=== PATIENT | male | born 1985 | race Caucasian/White ===

== ENCOUNTER 2017-05-30 23:20 | Emergency (ER) | payer SELFPAY ==
[~2017-05-30 23:20] MED LIST: ALBE200T PO; ALBU17I INH; MOME17I
[2017-05-30 23:23] VITALS: BP 134/80; PULSE 96; RESP 16; TEMP 98.1; O2SAT 98
[2017-05-31] MEDS ORDERED: LIDOCAINE VISCOUS 2% SOLN 15 ML UDC ONE (02:15)
--- NOTE | 2017-05-31 05:19 | PD ---
HPI Chief Complaint: Anxiety Time Seen by Provider: 05:10 Travel History International Travel<30 days: No Contact w/Intl Traveler<30days: No Traveled to known affect area: No History of Present Illness HPI PATIENT STATES H/O ANXIETY, ASTHMA AND GERD....PT CAME IN C/O FEELING NERVOUS ( NO SI OR HI) AND NOW THAT'S MAKING HIS GERD WORSE. STATES THAT HE IS UNDER A LOT STRESS AT HOME. PFSH Past Medical History Asthma: Yes Diminished Hearing: No Past Surgical History Other Surgery: Yes (NASAL SURGERY) Social History Alcohol Use: No Tobacco Use: No Substance Use: No (DENIES) Allergies-Medications (Allergen,Severity, Reaction): Coded Allergies: No Known Allergies (Verified , 02/11/12) Reported Meds & Prescriptions Reported Meds & Active Scripts Active Albenza (Albendazole) 200 Mg Tab 400 Mg PO DAILY 3 Days Reported Proventil Mdi (Albuterol Sulfate) 17 Gm [place] 2 Puff INH DIRECTED Nasonex (Mometasone Furoate) 17 Gm [place] 1 Spr NA DAILY Review of Systems Gastrointestinal: Positive: Nausea Psychiatric: Positive: Anxiety Physical Exam Narrative GENERAL: SKIN: Warm and dry. HEAD: Atraumatic. Normocephalic. EYES: Pupils equal and round. No scleral icterus. No injection or drainage. ENT: No nasal bleeding or discharge. Mucous membranes pink and moist. NECK: Trachea midline. No JVD. CARDIOVASCULAR: Regular rate and rhythm. RESPIRATORY: No accessory muscle use. Clear to auscultation. Breath sounds equal bilaterally. GASTROINTESTINAL: Abdomen soft, non-tender, nondistended. Hepatic and splenic margins not palpable. MUSCULOSKELETAL: Extremities without clubbing, cyanosis, or edema. No obvious deformities. NEUROLOGICAL: Awake and alert. No obvious cranial nerve deficits. Motor grossly within normal limits. Five out of 5 muscle strength in the arms and legs. Normal speech. PSYCHIATRIC: Appropriate mood and affect; insight and judgment normal THOUGH A BIT ANXIOUS Data Data Last Documented VS Vital Signs Date Time Temp Pulse Resp B/P Pulse Ox O2 Delivery O2 Flow Rate FiO2 05/30/17 23:23 98.1 96 16 134/80 98 Room Air Orders Lidocaine 2% Viscous (Xylocaine 2% Visco (05/31/17 02:15) Electrocardiogram (05/31/17 01:21) MDM Medical Decision Making Medical Screen Exam Complete: Yes Emergency Medical Condition: Yes Medical Record Reviewed: Yes Differential Diagnosis HYPOGLYCEMIA V DEHYDRATION V STRESS REACTION Narrative Course NEG E/O HYPOGLYCEMIA/DEHYDRATION AT THIS POINT. GI COCKTAIL HELPED RESOLVED PATIENT'S NAUSEA COMPLAINT Diagnosis Primary Impression: STRESS REACTION Additional Impression: DYSPEPSIA Disposition: 01 DISCHARGE HOME Condition: Stable Miguel Bui MD May 31, 2017 05:19
--- NOTE | 2017-05-31 13:36 | EKG ---
Date Performed: 05/31/2017 Time Performed: 01:21:31 PTAGE: 31 years EKG: Sinus rhythm WITH SINUS ARRHYTHMIA BORDERLINE RIGHT AXIS DEVIATION BORDERLINE ECG NO PREVIOUS TRACING DOCTOR: Wojciech Funes Interpretating Date/Time 05/31/2017 13:34:01
== END 2017-05-31 13:05 | disposition home or self-care (01) ==
LOC: NEPC 23:20
DX: F43.9 Reaction to severe stress, unspecified (principal); R10.13 Epigastric pain; J45.909 Unspecified asthma, uncomplicated; K21.9 Gastro-esophageal reflux disease without esophagitis
CPT/HCPCS: 93005; 99281

== ENCOUNTER 2017-06-13 19:25 | Inpatient (IN) | payer SELFPAY ==
[2017-06-13 19:30] VITALS: BP 137/68; PULSE 105; RESP 16; TEMP 98; O2SAT 100
[2017-06-13 20:51] VITALS: BP 135/74; PULSE 106; RESP 16; O2SAT 100
[2017-06-13] MEDS ORDERED: RANI150C PO (20:58)
[2017-06-13] MEDS ORDERED: VENTAER INH (20:58)
[2017-06-13] MEDS ORDERED: HYDR50TA94 PO (20:58)
[2017-06-13] MEDS ORDERED: SODIUM CHLORIDE 0.9% FLUSH 10 ML FLUSH IVF PRN (21:00)
--- NOTE | 2017-06-13 21:14 | PD ---
HPI Chief Complaint: Anxiety Time Seen by Provider: 21:09 Travel History International Travel<30 days: No Contact w/Intl Traveler<30days: No Traveled to known affect area: No History of Present Illness HPI Patient's mother complaining of anxiety, shortness of breath, chest pain, and excessive belching has been ongoing for several hours. Patient states he was seen here approximately 2 weeks ago for similar states that this feels somewhat different. Patient took his Vistaril and Ventolin with no relief of his symptoms. Patient denies anything making it worse. Patient has a history of panic and anxiety attacks as well as asthma. Patient denies any family history heart attack or sudden before age 40. Patient's pain is radiating into the right side of his neck. PFSH Past Medical History Asthma: Yes Anxiety: Yes Diminished Hearing: No Immunizations Current: Yes Past Surgical History Other Surgery: Yes (NASAL SURGERY) Social History Alcohol Use: Yes Tobacco Use: No Substance Use: No (DENIES) Allergies-Medications (Allergen,Severity, Reaction): Coded Allergies: No Known Allergies (Verified , 06/13/17) Reported Meds & Prescriptions Reported Meds & Active Scripts Active Albenza (Albendazole) 200 Mg Tab 400 Mg PO DAILY 3 Days Reported Ventolin Hfa 18 GM Inh (Albuterol Sulfate) 90 Mcg/Act Aer 2 Puff INH Q4-6H PRN Hydroxyzine HCl 50 Mg Tab 50 Mg PO BID PRN Ranitidine (Ranitidine HCl) 150 Mg Cap 150 Mg PO BID Proventil Mdi (Albuterol Sulfate) 17 Gm Aero 2 Puff INH DIRECTED Nasonex (Mometasone Furoate) 17 Gm [place] 1 Spr NA DAILY Review of Systems Except as stated in HPI: all other systems reviewed are Neg Physical Exam Narrative GENERAL: Well-developed, well nourished, in no acute distress, and non-ill appearing. SKIN: Focused skin assessment warm and dry. HEAD: Atraumatic. Normocephalic. EYES: Pupils equal and round. EOMI. No scleral icterus. No injection or drainage. ENT: No nasal bleeding or discharge. Mucous membranes pink and moist. NECK: Trachea midline. Supple. No nuclear rigidity. CARDIOVASCULAR: Regular rate and rhythm. No murmur appreciated. RESPIRATORY: No accessory muscle use. No respiratory distress. Clear to auscultation. Breath sounds equal bilaterally. GASTROINTESTINAL: Abdomen soft, non-tender, nondistended, and no guarding. Hepatic and splenic margins not palpable. No pulsatile mass. MUSCULOSKELETAL: No obvious deformities. No clubbing. No cyanosis. No edema. Full range of motion. NEUROLOGICAL: Awake and alert. No obvious cranial nerve deficits. Motor grossly within normal limits. Normal speech. PSYCHIATRIC: Appropriate mood and affect; insight and judgment normal. Data Data Last Documented VS Vital Signs Date Time Temp Pulse Resp B/P Pulse Ox O2 Delivery O2 Flow Rate FiO2 06/13/17 22:28 91 18 140/70 99 Room Air 06/13/17 19:30 98.0 Orders Electrocardiogram (06/13/17 20:58) Basic Metabolic Panel (Bmp) (06/13/17 20:58) Ckmb (Isoenzyme) Profile (06/13/17 20:58) Complete Blood Count With Diff (06/13/17 20:58) Magnesium (Mg) (06/13/17 20:58) Prothrombin Time / Inr (Pt) (06/13/17 20:58) Act Partial Throm Time (Ptt) (06/13/17 20:58) Troponin I (06/13/17 20:58) Chest, Single Ap (06/13/17 20:58) Ecg Monitoring (06/13/17 20:58) Bilateral Bp Monitoring (06/13/17 20:58) Iv Access Insert/Monitor (06/13/17 20:58) Oximetry (06/13/17 20:58) Oxygen Administration (06/13/17 20:58) Sodium Chloride 0.9% Flush (Ns Flush) (06/13/17 21:00) Ct Soft Tiss Neck W Iv Cont (06/13/17 ) Ct Thorax/ Chest W Iv Contrast (06/13/17 ) CKMB (06/13/17 21:05) CKMB% (06/13/17 21:05) Lorazepam Inj (Ativan Inj) (06/13/17 23:00) Sodium Chlor 0.9% 1000 Ml Inj (Ns 1000 M (06/13/17 23:00) Iohexol 350 Inj (Omnipaque 350 Inj) (06/13/17 23:16) Admit Order (Ed Use Only) (06/13/17 23:46) Chest, Single Ap (06/14/17 06:00) Place In Observation (06/13/17 ) Vital Signs (Adult) Q4H (06/13/17 23:46) Activity Oob Ad Sonya (06/13/17 23:46) Modular Home Crew Member / Telemetry .CONTINUOUS (06/13/17 23:46) Diet Regular Basic (06/14/17 Breakfast) Sodium Chloride 0.9% Flush (Ns Flush) (06/14/17 00:00) Sodium Chloride 0.9% Flush (Ns Flush) (06/14/17 09:00) Ondansetron Inj (Zofran Inj) (06/14/17 00:00) Comprehensive Metabolic Panel (06/14/17 06:00) Complete Blood Count With Diff (06/14/17 06:00) Troponin I (06/14/17 06:00) Troponin I (06/14/17 12:00) Scd Bilateral/Knee High KAROLINE.BID (06/13/17 23:46) Yung Bilateral/Knee High KAROLINE.QSHIFT (06/13/17 23:46) Acetaminophen (Tylenol) (06/14/17 00:00) Acetamin-Hydrocod 325-5 Mg ([place] 5-325 (06/14/17 00:00) Morphine Inj (Morphine Inj) (06/14/17 00:00) Docusate Sodium-Senna (Madeline-Colace) (06/14/17 09:00) Magnesium Hydroxide Liq (Milk Of Magnesi (06/14/17 00:00) Sennosides (Senokot) (06/14/17 00:00) Bisacodyl Supp (Dulcolax Supp) (06/14/17 00:00) Lactulose Liq (Lactulose Liq) (06/14/17 00:00) Resp Pulse Oximetry (06/13/17 ) Lorazepam Inj (Ativan Inj) (06/14/17 00:00) Labs Laboratory Tests Test 06/13/17 21:05 White Blood Count 15.2 TH/MM3 Red Blood Count 5.34 MIL/MM3 Hemoglobin 15.3 GM/DL Hematocrit 45.7 % Mean Corpuscular Volume 85.5 FL Mean Corpuscular Hemoglobin 28.7 PG Mean Corpuscular Hemoglobin 33.5 % Concent Red Cell Distribution Width 13.9 % Platelet Count 213 TH/MM3 Mean Platelet Volume 8.1 FL Neutrophils (%) (Auto) 84.4 % Lymphocytes (%) (Auto) 10.0 % Monocytes (%) (Auto) 5.2 % Eosinophils (%) (Auto) 0.2 % Basophils (%) (Auto) 0.2 % Neutrophils # (Auto) 12.8 TH/MM3 Lymphocytes # (Auto) 1.5 TH/MM3 Monocytes # (Auto) 0.8 TH/MM3 Eosinophils # (Auto) 0.0 TH/MM3 Basophils # (Auto) 0.0 TH/MM3 CBC Comment DIFF FINAL Differential Comment Prothrombin Time 11.0 SEC Prothromb Time International 1.0 RATIO Ratio Activated Partial 24.9 SEC Thromboplast Time Sodium Level 139 MEQ/L Potassium Level 4.0 MEQ/L Chloride Level 108 MEQ/L Carbon Dioxide Level 20.2 MEQ/L Anion Gap 11 MEQ/L Blood Urea Nitrogen 8 MG/DL Creatinine 1.17 MG/DL Estimat Glomerular Filtration 73 ML/MIN Rate Random Glucose 132 MG/DL Calcium Level 9.7 MG/DL Magnesium Level 1.8 MG/DL Total Creatine Kinase 102 U/L Creatine Kinase MB 0.5 NG/ML Troponin I LESS THAN 0.02 NG/ML MDM Medical Decision Making Medical Screen Exam Complete: Yes Emergency Medical Condition: Yes Interpretation(s) EKG reviewed by Dr. Mcqueen shows sinus rhythm ventricular rate of 90. No STEMI. Chest x-ray read by the radiologist shows: No acute disease. Questionable pneumomediastinum in the neck. CT of the neck and chest reviewed by Dr. Thomas positive for pneumomediastinum. Radiologist to over read. Differential Diagnosis Pneumonia, pneumothorax, electrolyte abnormality, anxiety, acute coronary syndrome, other Narrative Course 2144 after being chest x-ray patient was reevaluated neck exam noted some mild crepitus on right. Patient's exam. Initial laboratory studies were ordered. IV was established. Patient was placed on a quality assurance monitor chassis. Discussed patient with Dr. Mcqueen who saw and evaluated the patient is in agreement with plan of care and disposition. I discussed all findings and plan of care with patient, who was agreeable for admission. All questions were answered. Patient remained stable throughout ED course. Physician Communication Physician Communication [id number] Bentley, who is agreeable to admit the patient. Diagnosis Primary Impression: Pneumomediastinum Admitting Information Admitting Physician Requests: Observation Condition: Stable Lester Luciano Jun 13, 2017 21:14
--- NOTE | 2017-06-13 21:31 | RADRPT ---
EXAM DATE/TIME: 06/13/2017 20:59 [facility] COMPARISON: No previous studies available for comparison. INDICATIONS : Short of breath. MEDICAL HISTORY : Bronchitis and anxiety SURGICAL HISTORY : None. ENCOUNTER: Initial ACUITY: 1 day PAIN SCORE: 4/10 LOCATION: Bilateral chest FINDINGS: A single view of the chest demonstrates the lungs to be symmetrically aerated without evidence of mas s, infiltrate or effusion. The cardiomediastinal contours are unremarkable. Osseous structures are intact. Questionable pneumomediastinum in neck. CONCLUSION: No acute disease. Questionable pneumomediastinum in the neck. Anshul Dimas MD on June 13, 2017 at 21:29 Board Certified Radiologist. This report was verified electronically.
[2017-06-13 21:35] LABS: AUTOMATED NEUTROPHIL # 12.8 TH/MM3 (1.8-7.7); BASOPHIL % 0.2 % (0.0-2.0); EOSINOPHIL % 0.2 % (0.0-4.0); HEMATOCRIT 45.7 % (39.0-51.0); HEMO FLAGS DIFF FINAL; LYMPHOCYTE # 1.5 TH/MM3 (1.0-4.8); MEAN CELL VOLUME 85.5 FL (80.0-100.0); MEAN CORPUSCULAR HEMOGLOBIN 28.7 PG (27.0-34.0); MEAN CORPUSCULAR HGB CONC 33.5 % (32.0-36.0); MONO % 5.2 % (0.0-8.0); NEUT % 84.4 % (16.0-70.0); PLATELET COUNT 213 TH/MM3 (150-450); RED BLOOD COUNT 5.34 MIL/MM3 (4.50-5.90); RED CELL DISTRIBUTION WIDTH 13.9 % (11.6-17.2); WHITE BLOOD COUNT 15.2 TH/MM3 (4.0-11.0)
[2017-06-13 21:44] LABS: APTT (PATIENT) 24.9 SEC (24.3-30.1)
[2017-06-13 22:22] LABS: CREATINE KINASE 102 U/L (39-308)
[2017-06-13 22:23] LABS: ANION GAP 11 MEQ/L (5-15); BICARBONATE 20.2 MEQ/L (21.0-32.0); BLOOD UREA NITROGEN 8 MG/DL (7-18); CHLORIDE 108 MEQ/L (98-107); GLOMERULAR FILTRATION RATE 73 ML/MIN (>89); MAGNESIUM 1.8 MG/DL (1.5-2.5); SODIUM (NA) 139 MEQ/L (136-145)
[2017-06-13 22:28] VITALS: BP 140/70; PULSE 91; RESP 18; O2SAT 99
[2017-06-13 22:34] LABS: CKMB 0.5 NG/ML (0.5-3.6)
[2017-06-13] MEDS ORDERED: SODIUM CHLOR 0.9% 1000 ML INJ 1,000 ML IV ONE (23:00)
[2017-06-13] MEDS ORDERED: LORazepam 2 MG/ML VIAL IV PUSH ONE (23:00)
[2017-06-13] MEDS ORDERED: IOHEXOL 350 MG/ML 10 ML VIAL (for RAD DIAG) IV ONE (23:16)
--- NOTE | 2017-06-13 23:50 | HHI.HP ---
[facility] Primary Care Physician Cory Martin MD Admission Diagnosis spontaneous pneumomediastinum Diagnoses: (1) Pneumomediastinum Diagnosis: Principal (2) Chest pain Diagnosis: Principal (3) Anxiety Diagnosis: Principal (4) Dehydration Diagnosis: Principal (5) Leukocytosis Diagnosis: Principal Travel History International Travel<30 Days: No Contact w/Intl Traveler <30 Da: No Traveled to Known Affected Are: No History of Present Illness This is a 31-year-old male with PMH of Anxiety and Asthma who presented to the ER with complaints of significant chest pain and SOB which she attributes to his anxiety. States symptoms of been ongoing for approximately 2wks. Seen in ER on 05/31/17 for similar complaints and d/c'd home. Returns now w/ recurrent chest pain and feelings of anxiety. Does report significant stress at home. On arrival, BP 137/68, HR 105, O2 sat 100% on RA, Afebrile. WBC 15.2. GFR 73. Troponin negative. INR 1.0. CXR with no acute disease, questionable pneumomediastinum in the neck. S/p CT Chest/Neck w/ extensive pneumomediastinum extending into the neck, no pneumothorax noted. Pt denies recent trauma or injury. Review of Systems Except as stated in HPI: all other systems reviewed are Neg ROS: 14 point review of systems otherwise negative. Past Family Social History Past Medical History PMH: Anxiety and Asthma Past Surgical History PAST SURGICAL HISTORY: Nasal Surgery Allergies: Coded Allergies: No Known Allergies (Verified , 06/13/17) Family History PAST FAMILY HISTORY: Reviewed. No h/o DM or CAD Social History PAST SOCIAL HISTORY: Occasional alcohol. Negative for tobacco or drugs. Physical Exam Vital Signs Vital Signs Date Time Temp Pulse Resp B/P Pulse Ox O2 Delivery O2 Flow Rate FiO2 06/13/17 22:28 91 18 140/70 99 Room Air 06/13/17 20:51 106 16 135/74 100 Room Air 06/13/17 20:49 26 06/13/17 19:30 98.0 105 16 137/68 100 Room Air Physical Exam PE: GENERAL: Young male in no acute distress. HEENT: PERRLA, EOMI. No scleral icterus or conjunctival pallor. No lid lag or facial droop. CARDIOVASCULAR: Regular rate and rhythm. No obvious murmurs to auscultation. No chest tenderness to palpation. +crepitus right chest/neck RESPIRATORY: No obvious rhonchi or wheezing. Clear to auscultation. Breath sounds equal bilaterally. GASTROINTESTINAL: Abdomen soft, non-tender, nondistended. BS normal. MUSCULOSKELETAL: Extremities without clubbing, cyanosis, or edema. No obvious deformities. NEUROLOGICAL: Awake, alert and oriented x4. No focal neurologic deficits. Moving both upper and lower extremities spontaneously. Laboratory Laboratory Tests Test 06/13/17 21:05 White Blood Count 15.2 Red Blood Count 5.34 Hemoglobin 15.3 Hematocrit 45.7 Mean Corpuscular Volume 85.5 Mean Corpuscular Hemoglobin 28.7 Mean Corpuscular Hemoglobin 33.5 Concent Red Cell Distribution Width 13.9 Platelet Count 213 Mean Platelet Volume 8.1 Neutrophils (%) (Auto) 84.4 Lymphocytes (%) (Auto) 10.0 Monocytes (%) (Auto) 5.2 Eosinophils (%) (Auto) 0.2 Basophils (%) (Auto) 0.2 Neutrophils # (Auto) 12.8 Lymphocytes # (Auto) 1.5 Monocytes # (Auto) 0.8 Eosinophils # (Auto) 0.0 Basophils # (Auto) 0.0 CBC Comment DIFF FINAL Differential Comment Prothrombin Time 11.0 Prothromb Time International 1.0 Ratio Activated Partial 24.9 Thromboplast Time Sodium Level 139 Potassium Level 4.0 Chloride Level 108 Carbon Dioxide Level 20.2 Anion Gap 11 Blood Urea Nitrogen 8 Creatinine 1.17 Estimat Glomerular Filtration 73 Rate Random Glucose 132 Calcium Level 9.7 Magnesium Level 1.8 Total Creatine Kinase 102 Creatine Kinase MB 0.5 Troponin I LESS THAN 0.02 Result Diagram: 06/13/17210406/13/172104 Assessment and Plan Problem List: (1) Pneumomediastinum ICD Code: J98.2 Status: Acute (2) Chest pain ICD Code: R07.9 Status: Acute (3) Anxiety ICD Code: F41.9 Status: Acute (4) Dehydration ICD Code: E86.0 Status: Acute (5) Leukocytosis ICD Code: D72.829 Status: Acute Assessment and Plan A/P: 1. Pneumomediastinum: Spontaneous. No h/o injury/trauma. CXR w/ possible pneumomediastinum, CT Neck/Chest w/ extensive pneumomediastinum extending into neck, no pneumothorax noted, images reviewed by me. O2 sat normal, will monitor. Check repeat CXR in am for further eval. Consult Gen Sx as needed. 2. Chest Pain: Likely secondary to above, compounded by significant anxiety. Low risk for CAD. Initial trop negative, check serial cardiac enzymes. Analgesics as needed. 3. Anxiety: Ativan prn. 4. Dehydration: GFR 73, BUN/Creat normal, IVF for hydration, repeat labs in am. 5. Leukocytosis: WBC 15. Afebrile. CXR w/ no infiltrate, images reviewed by me, no obvious infection. Repeat labs in am. 6. DVT Prophylaxis: SCD/Teds. 7. Social work for d/c planning as needed. 8. Case discussed w/ ER physician at length. Melba Bentley MD Jun 13, 2017 23:50
[2017-06-14] VITALS (13 sets, daily range): BP systolic 121–136; BP diastolic 62–77; PULSE 66–101; RESP 16–21; TEMP 96.8–98.8; O2SAT 95–100
[2017-06-14] MEDS ORDERED: LACTULOSE SYRUP 20 GM/30 ML CUP PO PRN
[2017-06-14] MEDS ORDERED: BISACODYL 10 MG SUPP RECTAL PRN
[2017-06-14] MEDS ORDERED: ACETAMINOPHEN 325 MG TAB PO PRN
[2017-06-14] MEDS ORDERED: ACETAMINOPHEN/HYDROcodone 325 MG/5 MG TAB PO PRN
[2017-06-14] MEDS ORDERED: SENNOSIDES 8.6 MG TAB PO PRN
[2017-06-14] MEDS ORDERED: SODIUM CHLORIDE 0.9% FLUSH 10 ML FLUSH IV FLUSH PRN
[2017-06-14] MEDS ORDERED: MORPHINE SULFATE 4 MG/ML INJ IV PRN
[2017-06-14] MEDS ORDERED: ONDANSETRON HCL 4 MG/2 ML VIAL IVP PRN
[2017-06-14] MEDS ORDERED: MAGNESIUM HYDROXIDE SUSP 30 ML CUP PO PRN
--- NOTE | 2017-06-14 00:15 | RADRPT ---
EXAM DATE/TIME: 06/13/2017 23:14 [facility] COMPARISON: CT THORAX W CONTRAST, June 13, 2017, 23:14. INDICATIONS : Dyspnea; possible pneumomediastinum on chest x-ray. IV CONTRAST: 78 cc Omnipaque 350 (iohexol) IV ; Cumulative dose for multiple exams. RADIATION DOSE: 12.69 CTDIvol (mGy) MEDICAL HISTORY : Asthma. SURGICAL HISTORY : None. ENCOUNTER: Initial ACUITY: 1 day PAIN SCALE: 0/10 LOCATION: neck TECHNIQUE: Volumetric scanning of the neck was performed. Using automated exposure control and adjustment of th e mA and/or kV according to patient size, radiation dose was kept as low as reasonably achievable to obtain optimal diagnostic quality images. DICOM format image data is available electronically for r eview and comparison. FINDINGS: There is extensive pneumomediastinum with extension of air into the neck, slightly more so on the rig ht than the left. There is extensive air in the parapharyngeal spaces bilaterally and retropharyngeal space. There appears to been previous sinus surgery and there is mild persistent sinus disease. The visualized brain and orbits are unremarkable. There is no evidence of cervical adenopathy or mass. Thyroid is unremarkable. Upper airway structures are patent and normal in appearance. CONCLUSION: Extensive pneumomediastinum with extension of air into the neck as described. Russell Herrera MD on June 14, 2017 at 0:10 Board Certified Radiologist. This report was verified electronically.
--- NOTE | 2017-06-14 00:17 | RADRPT ---
EXAM DATE/TIME: 06/13/2017 23:14 [facility] COMPARISON: No previous studies available for comparison. INDICATIONS : Short of breath; possible pneumomediastinum on chest x-ray. IV CONTRAST: 78 cc Omnipaque 350 (iohexol) IV ; Cumulative dose for multiple exams. RADIATION DOSE: 4.21 CTDIvol (mGy) MEDICAL HISTORY : Asthma. SURGICAL HISTORY : None. ENCOUNTER: Initial ACUITY: 1 day PAIN SCALE: 0/10 LOCATION: chest TECHNIQUE: Volumetric scanning of the chest was performed. Using automated exposure control and adjustment of t he mA and/or kV according to patient size, radiation dose was kept as low as reasonably achievable to obtain optimal diagnostic quality images. DICOM format image data is available electronically for review and comparison. Follow-up recommendations for incidentally detected pulmonary nodules are based at a minimum on nodul e size and patient risk factors according to Fleischner Society Guidelines. FINDINGS: There is extensive pneumomediastinum, mainly in the upper mediastinum with extension into the neck. T here is no evidence of pneumothorax. The lungs are grossly clear. There is no evidence of mediastinal mass or lymphadenopathy. There is no evidence of axillary adenopathy or chest wall destruction. CONCLUSION: Extensive pneumomediastinum Russell Herrera MD on June 14, 2017 at 0:14 Board Certified Radiologist. This report was verified electronically.
--- NOTE | 2017-06-14 00:49 | PD ---
Data Data Last Documented VS Vital Signs Date Time Temp Pulse Resp B/P Pulse Ox O2 Delivery O2 Flow Rate FiO2 06/13/17 22:28 91 18 140/70 99 Room Air 06/13/17 19:30 98.0 Orders Electrocardiogram (06/13/17 20:58) Basic Metabolic Panel (Bmp) (06/13/17 20:58) Ckmb (Isoenzyme) Profile (06/13/17 20:58) Complete Blood Count With Diff (06/13/17 20:58) Magnesium (Mg) (06/13/17 20:58) Prothrombin Time / Inr (Pt) (06/13/17 20:58) Act Partial Throm Time (Ptt) (06/13/17 20:58) Troponin I (06/13/17 20:58) Chest, Single Ap (06/13/17 20:58) Ecg Monitoring (06/13/17 20:58) Bilateral Bp Monitoring (06/13/17 20:58) Iv Access Insert/Monitor (06/13/17 20:58) Oximetry (06/13/17 20:58) Oxygen Administration (06/13/17 20:58) Sodium Chloride 0.9% Flush (Ns Flush) (06/13/17 21:00) Ct Soft Tiss Neck W Iv Cont (06/13/17 ) Ct Thorax/ Chest W Iv Contrast (06/13/17 ) CKMB (06/13/17 21:05) CKMB% (06/13/17 21:05) Lorazepam Inj (Ativan Inj) (06/13/17 23:00) Sodium Chlor 0.9% 1000 Ml Inj (Ns 1000 M (06/13/17 23:00) Iohexol 350 Inj (Omnipaque 350 Inj) (06/13/17 23:16) Admit Order (Ed Use Only) (06/13/17 23:46) Chest, Single Ap (06/14/17 06:00) Place In Observation (06/13/17 ) Vital Signs (Adult) Q4H (06/13/17 23:46) Activity Oob Ad Sonya (06/13/17 23:46) Ceo And President / Telemetry .CONTINUOUS (06/13/17 23:46) Diet Regular Basic (06/14/17 Breakfast) Sodium Chloride 0.9% Flush (Ns Flush) (06/14/17 00:00) Sodium Chloride 0.9% Flush (Ns Flush) (06/14/17 09:00) Ondansetron Inj (Zofran Inj) (06/14/17 00:00) Comprehensive Metabolic Panel (06/14/17 06:00) Complete Blood Count With Diff (06/14/17 06:00) Troponin I (06/14/17 06:00) Troponin I (06/14/17 12:00) Scd Bilateral/Knee High KAROLINE.BID (06/13/17 23:46) Yung Bilateral/Knee High KAROLINE.QSHIFT (06/13/17 23:46) Acetaminophen (Tylenol) (06/14/17 00:00) Acetamin-Hydrocod 325-5 Mg ([place] 5-325 (06/14/17 00:00) Morphine Inj (Morphine Inj) (06/14/17 00:00) Docusate Sodium-Senna (Madeline-Colace) (06/14/17 09:00) Magnesium Hydroxide Liq (Milk Of Magnesi (06/14/17 00:00) Sennosides (Senokot) (06/14/17 00:00) Bisacodyl Supp (Dulcolax Supp) (06/14/17 00:00) Lactulose Liq (Lactulose Liq) (06/14/17 00:00) Resp Pulse Oximetry (06/13/17 ) Lorazepam Inj (Ativan Inj) (06/14/17 00:00) Labs Laboratory Tests Test 06/13/17 21:05 White Blood Count 15.2 TH/MM3 Red Blood Count 5.34 MIL/MM3 Hemoglobin 15.3 GM/DL Hematocrit 45.7 % Mean Corpuscular Volume 85.5 FL Mean Corpuscular Hemoglobin 28.7 PG Mean Corpuscular Hemoglobin 33.5 % Concent Red Cell Distribution Width 13.9 % Platelet Count 213 TH/MM3 Mean Platelet Volume 8.1 FL Neutrophils (%) (Auto) 84.4 % Lymphocytes (%) (Auto) 10.0 % Monocytes (%) (Auto) 5.2 % Eosinophils (%) (Auto) 0.2 % Basophils (%) (Auto) 0.2 % Neutrophils # (Auto) 12.8 TH/MM3 Lymphocytes # (Auto) 1.5 TH/MM3 Monocytes # (Auto) 0.8 TH/MM3 Eosinophils # (Auto) 0.0 TH/MM3 Basophils # (Auto) 0.0 TH/MM3 CBC Comment DIFF FINAL Differential Comment Prothrombin Time 11.0 SEC Prothromb Time International 1.0 RATIO Ratio Activated Partial 24.9 SEC Thromboplast Time Sodium Level 139 MEQ/L Potassium Level 4.0 MEQ/L Chloride Level 108 MEQ/L Carbon Dioxide Level 20.2 MEQ/L Anion Gap 11 MEQ/L Blood Urea Nitrogen 8 MG/DL Creatinine 1.17 MG/DL Estimat Glomerular Filtration 73 ML/MIN Rate Random Glucose 132 MG/DL Calcium Level 9.7 MG/DL Magnesium Level 1.8 MG/DL Total Creatine Kinase 102 U/L Creatine Kinase MB 0.5 NG/ML Troponin I LESS THAN 0.02 NG/ML MDM Supervised Visit with MUNDO: Yes Narrative Course The history, exam, and medical decision-making in the associated mid-level provider note were completed with my assistance. I reviewed and agree with the findings presented. I attest that I had a [id number] encounter with the patient on the same day, and personally performed and documented my assessment and findings in the medical record. *My assessment and Findings: 31-year-old male presents emergent from with anxiety symptoms and trouble breathing. He was found to have a pneumomediastinum. Unclear etiology. He does have asthma. He's had a little bit a cough but no forceful coughing of forceful vomiting. He looks overall well. We'll plan on admission for observation, she continues to do well and can follow-up as an outpatient. Diagnosis Primary Impression: Pneumomediastinum Condition: Stable Marquez Mcqueen MD Jun 14, 2017 00:49
[2017-06-14 05:23] LABS: AUTOMATED NEUTROPHIL # 7.4 TH/MM3 (1.8-7.7); BASOPHIL % 0.4 % (0.0-2.0); EOSINOPHIL # 0.2 TH/MM3 (0-0.4); EOSINOPHIL % 1.8 % (0.0-4.0); HEMATOCRIT 41.7 % (39.0-51.0); HEMO FLAGS DIFF FINAL; LYMPH % 27.3 % (9.0-44.0); LYMPHOCYTE # 3.3 TH/MM3 (1.0-4.8); MEAN CELL VOLUME 85.5 FL (80.0-100.0); MONO % 9.3 % (0.0-8.0); NEUT % 61.2 % (16.0-70.0); PLATELET COUNT 172 TH/MM3 (150-450); RED BLOOD COUNT 4.88 MIL/MM3 (4.50-5.90); RED CELL DISTRIBUTION WIDTH 13.7 % (11.6-17.2)
[2017-06-14 05:47] LABS: ALKALINE PHOSPHATASE 56 U/L (45-117); ALT (GPT) 16 U/L (12-78); ANION GAP 10 MEQ/L (5-15); AST (GOT) 6 U/L (15-37); BICARBONATE 25.2 MEQ/L (21.0-32.0); BLOOD UREA NITROGEN 7 MG/DL (7-18); CHLORIDE 109 MEQ/L (98-107); GLOMERULAR FILTRATION RATE 87 ML/MIN (>89); POTASSIUM 4.2 MEQ/L (3.5-5.1); SODIUM (NA) 144 MEQ/L (136-145)
--- NOTE | 2017-06-14 06:41 | RADRPT ---
EXAM DATE/TIME: 06/14/2017 06:33 [facility] COMPARISON: CHEST SINGLE AP, June 13, 2017, 20:59. INDICATIONS : Follow up pnuemomediastinum MEDICAL HISTORY : None. SURGICAL HISTORY : None. ENCOUNTER: Subsequent ACUITY: 2 days PAIN SCORE: 8/10 LOCATION: Bilateral chest FINDINGS: Extensive pneumomediastinum is again noted with extension of air into the neck, right worse the left and in the right supraclavicular region and axillary region. Lungs remain grossly clear and no defini te pneumothorax is identified. Heart size pulmonary vascularity are normal. CONCLUSION: Slight interval increase in pneumomediastinum and soft tissue air. Russell Herrera MD on June 14, 2017 at 6:39 Board Certified Radiologist. This report was verified electronically.
[2017-06-14] MEDS: FAMOTIDINE 20 MG TAB PO SCH ×2 (09:22→20:17)
[2017-06-14] MEDS: SODIUM CHLORIDE 0.9% FLUSH 10 ML FLUSH IV FLUSH SCH ×2 (09:22→20:17)
[2017-06-14] MEDS: DOCUSATE SODIUM 50 MG/SENNA 8.6 MG TAB PO SCH ×2 (09:22→20:17)
--- NOTE | 2017-06-14 10:22 | HHI.PR ---
Subjective Remarks Follow up for pneumomediastinum, anxiety, chest pain. The patient reports feeling slightly better today. Denies any chest pain or shortness of breath. He states he feels some discomfort in the lower neck and supraclavicular region. Denies any dysphagia/odynophagia. He states his asthma is fairly well controlled , uses his inhaler 3-4x per week, slightly more frequently this past week which he states is because of anxiety. Denies any prior history of intubations or hospitalizations for asthma. He has no other medical complaints at this time. Objective Vitals Vital Signs Date Time Temp Pulse Resp B/P Pulse Ox O2 Delivery O2 Flow Rate FiO2 06/14/17 08:15 97.9 83 18 129/74 95 06/14/17 05:04 98.1 88 21 124/74 100 06/14/17 03:12 98.8 74 18 133/74 98 06/14/17 02:17 66 06/14/17 00:39 80 16 131/66 99 Room Air 06/14/17 00:16 98 06/13/17 22:28 91 18 140/70 99 Room Air 06/13/17 20:51 106 16 135/74 100 Room Air 06/13/17 20:49 26 06/13/17 19:30 98.0 105 16 137/68 100 Room Air Result Diagram: 06/14/17 0505 06/14/17 0505 Imaging Last Impressions Chest X-Ray 06/14/17 0600 Signed Impressions: Service Date/Time: Wednesday, June 14, 2017 06:33 - CONCLUSION: Slight interval increase in pneumomediastinum and soft tissue air. Russell Herrera MD Neck CT 06/13/17 0000 Signed Impressions: Service Date/Time: Tuesday, June 13, 2017 23:14 - CONCLUSION: Extensive pneumomediastinum with extension of air into the neck as described. Russell Herrera MD Chest CT 06/13/17 0000 Signed Impressions: Service Date/Time: Tuesday, June 13, 2017 23:14 - CONCLUSION: Extensive pneumomediastinum Russell Herrera MD Objective Remarks GENERAL: Well-nourished, well-developed young male patient in [facility]. SKIN: Warm and dry. No rash. HEENT: Normocephalic. Atraumatic. Pupils equal and round. Mucous membranes pink and moist. NECK: Supple. Trachea midline. Palpable crepitus right upper chest/neck. CARDIOVASCULAR: Regular rate and rhythm. S1, S2 noted. No murmur appreciated. RESPIRATORY: No accessory muscle use. Clear to auscultation. Breath sounds equal bilaterally. GASTROINTESTINAL: Abdomen soft, non-tender, nondistended. Normoactive bowel sounds x4. MUSCULOSKELETAL: No obvious deformities. Extremities without clubbing, cyanosis , or edema. NEUROLOGICAL: Awake and alert. No obvious cranial nerve deficits. Motor grossly within normal limits. Normal speech. PSYCHIATRIC: Slightly anxious; insight and judgment normal. Medications and IVs Current Medications Medications (Trade) Dose Ordered Sig/Valentín Route Start Time Stop Time Status Last Admin (NS Flush) 2 ml UNSCH PRN IVF 06/13/17 21:00 (NS Flush) 2 ml UNSCH PRN IV FLUSH 06/14/17 00:00 (NS Flush) 2 ml BID IV FLUSH 06/14/17 09:00 06/14/17 09:22 (Zofran Inj) 4 mg Q6H PRN IVP 06/14/17 00:00 (Tylenol) 650 mg Q6H PRN PO 06/14/17 00:00 (Nash 5-325 Mg) 1 tab Q4H PRN PO 06/14/17 00:00 (Morphine Inj) 2 mg Q3H PRN IV 06/14/17 00:00 (Madeline-Colace) 1 tab BID PO 06/14/17 09:00 06/14/17 09:22 (Milk Of Magnesia Liq) 30 ml Q12H PRN PO 06/14/17 00:00 (Senokot) 17.2 mg Q12H PRN PO 06/14/17 00:00 (Dulcolax Supp) 10 mg DAILY PRN RECTAL 06/14/17 00:00 (Lactulose Liq) 30 ml DAILY PRN PO 06/14/17 00:00 (Ativan Inj) 1 mg Q4H PRN IV PUSH 06/14/17 00:00 (Atarax) 50 mg BID PRN PO 06/14/17 09:00 (Pepcid) 20 mg BID PO 06/14/17 10:00 06/14/17 09:22 A/P Problem List: (1) Pneumomediastinum ICD Code: J98.2 Status: Acute (2) Chest pain ICD Code: R07.9 Status: Acute (3) Anxiety ICD Code: F41.9 Status: Acute (4) Dehydration ICD Code: E86.0 Status: Acute (5) Leukocytosis ICD Code: D72.829 Status: Acute Assessment and Plan 31-year-old male with PMH of Anxiety and Asthma who presented to the ER with complaints of significant chest pain and SOB which he attributes to his anxiety. Extensive Spontaneous Pneumomediastinum: No h/o injury/trauma. CXR w/ pneumomediastinum, CT Neck/Chest w/ extensive pneumomediastinum extending into neck, no pneumothorax noted, images reviewed by me. O2 sat normal, will monitor closely. Repeat CXR today shows slight interval increase in pneumomediastinum and soft tissue air. Discussed with Dr. Flor, consult placed. Chest Pain: Likely secondary to above, compounded by significant anxiety. Low risk for CAD. Initial trops negative x2, checking 3rd set. EKG reviewed, no acute ischemic changes. Analgesics as needed. Anxiety: Continue patient's hydroxyzine prn. Ativan prn severe anxiety. Dehydration: GFR 73, BUN/Creat normal, IVF for hydration, repeat labs show slight improvement. Monitor. Avoid nephrotoxins. Leukocytosis: WBC 15K. Afebrile. CXR w/ no infiltrate, images reviewed by me , no obvious infection. Repeat labs show improvement, WBC 12K. Monitor. DVT Prophylaxis: SCD/Teds. Discharge Planning Admit to inpatient for closer monitoring with worsening extensive pneumomediastinum. Cardiothoracic surgery consulted. Attending Statement The exam, history, and the medical decision-making described in the above note were completed with the assistance of the mid-level provider. I reviewed and agree with the findings presented. I attest that I had a [id number] encounter with the patient on the same day, and personally performed and documented my assessment and findings in the medical record. The case was Discussed with PHILIP, with patient and with Doctor Thom. Celia Cannon PA-C Jun 14, 2017 10:21 Edvin Coburn MD Jun 14, 2017 18:05
[2017-06-14] MEDS: hydrOXYzine HCL 50 MG TAB PO PRN ×2 (10:41→19:36)
--- NOTE | 2017-06-14 13:01 | PD.CAR.PN ---
CVT Progress Note Subjective/Hospital Course: Young asthenic appearing patient with spontaneous pneumomediastinum. 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 Pneumomediastinum in this situation will occur when the culprit bleb is located within the folds off parietal pleura as it exits the mediastinum This is a self-limiting process and occasionally we'll turn into home alone pneumothorax at which time patient chest tube placed Full consult to follow Nikhil Schulz Objective: Vital Signs Date Time Temp Pulse Resp B/P Pulse Ox O2 Delivery O2 Flow Rate FiO2 06/14/17 12:02 96.8 100 18 132/68 95 06/14/17 11:11 68 06/14/17 08:15 97.9 83 18 129/74 95 06/14/17 05:04 98.1 88 21 124/74 100 06/14/17 03:12 98.8 74 18 133/74 98 06/14/17 02:17 66 06/14/17 00:39 80 16 131/66 99 Room Air 06/14/17 00:16 98 06/13/17 22:28 91 18 140/70 99 Room Air 06/13/17 20:51 106 16 135/74 100 Room Air 06/13/17 20:49 26 06/13/17 19:30 98.0 105 16 137/68 100 Room Air Labs: Laboratory Tests Test 06/14/17 05:05 White Blood Count 12.0 TH/MM3 (4.0-11.0) Red Blood Count 4.88 MIL/MM3 (4.50-5.90) Hemoglobin 14.2 GM/DL (13.0-17.0) Hematocrit 41.7 % (39.0-51.0) Mean Corpuscular Volume 85.5 FL (80.0-100.0) Mean Corpuscular Hemoglobin 29.0 PG (27.0-34.0) Mean Corpuscular Hemoglobin 34.0 % Concent (32.0-36.0) Red Cell Distribution Width 13.7 % (11.6-17.2) Platelet Count 172 TH/MM3 (150-450) Mean Platelet Volume 8.7 FL (7.0-11.0) Neutrophils (%) (Auto) 61.2 % (16.0-70.0) Lymphocytes (%) (Auto) 27.3 % (9.0-44.0) Monocytes (%) (Auto) 9.3 % (0.0-8.0) Eosinophils (%) (Auto) 1.8 % (0.0-4.0) Basophils (%) (Auto) 0.4 % (0.0-2.0) Neutrophils # (Auto) 7.4 TH/MM3 (1.8-7.7) Lymphocytes # (Auto) 3.3 TH/MM3 (1.0-4.8) Monocytes # (Auto) 1.1 TH/MM3 (0-0.9) Eosinophils # (Auto) 0.2 TH/MM3 (0-0.4) Basophils # (Auto) 0.0 TH/MM3 (0-0.2) CBC Comment DIFF FINAL Differential Comment Sodium Level 144 MEQ/L (136-145) Potassium Level 4.2 MEQ/L (3.5-5.1) Chloride Level 109 MEQ/L (98-107) Carbon Dioxide Level 25.2 MEQ/L (21.0-32.0) Anion Gap 10 MEQ/L (5-15) Blood Urea Nitrogen 7 MG/DL (7-18) Creatinine 1.01 MG/DL (0.60-1.30) Estimat Glomerular Filtration 87 ML/MIN (>89) Rate Random Glucose 87 MG/DL (74-106) Calcium Level 8.6 MG/DL (8.5-10.1) Total Bilirubin 1.0 MG/DL (0.2-1.0) Aspartate Amino Transf 6 U/L (15-37) (AST/SGOT) Alanine Aminotransferase 16 U/L (12-78) (ALT/SGPT) Alkaline Phosphatase 56 U/L (45-117) Troponin I LESS THAN 0.02 NG/ML (0.02-0.05) Total Protein 6.6 GM/DL (6.4-8.2) Albumin 3.7 GM/DL (3.4-5.0) Result Diagram: 06/14/17 0505 06/14/17 0505 Bairon Flor MD Jun 14, 2017 13:01
[2017-06-14] MEDS ORDERED: LORazepam 2 MG/ML VIAL IV PUSH PRN ×2 (14:00)
--- NOTE | 2017-06-14 18:29 | EKG ---
Date Performed: 06/13/2017 Time Performed: 21:07:35 PTAGE: 31 years EKG: Sinus rhythm BORDERLINE RIGHT AXIS DEVIATION BORDERLINE ECG PREVIOUS TRACING : 05/31/2017 01.21 Compared to prior tracing no significant change DOCTOR: Silver Lackey Interpretating Date/Time 06/14/2017 18:27:01
[2017-06-15 04:15] VITALS: BP 139/78; PULSE 84; RESP 18; TEMP 98.1; O2SAT 97
--- NOTE | 2017-06-15 06:20 | RADRPT ---
EXAM DATE/TIME: 06/15/2017 06:03 [facility] COMPARISON: CT THORAX W CONTRAST, June 13, 2017, 23:14. CHEST SINGLE AP, June 14, 2017, 6:33. INDICATIONS : Shortness of breath. Follow up pneumomediastinum. MEDICAL HISTORY : Asthma. SURGICAL HISTORY : None. ENCOUNTER: Subsequent ACUITY: 3 days PAIN SCORE: 0/10 LOCATION: Bilateral chest FINDINGS: Portable AP view the chest demonstrates a normal-sized cardiac silhouette. There is persistent air wi thin the mediastinum and in the right supraclavicular region. No pneumothorax is visualized. There is no effusion or airspace consolidation. CONCLUSION: Stable chest x-ray with pneumomediastinum and soft tissue air within the neck. Russell Mendoza MD on June 15, 2017 at 6:16 Board Certified Radiologist. This report was verified electronically.
[2017-06-15 07:47] VITALS: BP 123/77; PULSE 81; RESP 15; TEMP 97.8; O2SAT 99
[2017-06-15 08:50] VITALS: PULSE 81
--- NOTE | 2017-06-15 09:34 | HHI.PR ---
Subjective Remarks Follow up for pneumomediastinum, anxiety, chest pain. The patient reports no further chest pain however does still have some pain at the right anterolateral neck, associated with minimal odynophagia however still able to tolerate oral intake without difficulty. Denies any shortness of breath. O2 sat stable on room air. He reports his anxiety has improved. He has no other medical complaints at this time. Objective Vitals Vital Signs Date Time Temp Pulse Resp B/P Pulse Ox O2 Delivery O2 Flow Rate FiO2 06/15/17 07:47 97.8 81 15 123/77 99 06/15/17 04:15 98.1 84 18 139/78 97 06/14/17 23:41 98.4 97 18 133/70 98 06/14/17 20:24 74 06/14/17 19:42 98.1 85 18 121/77 98 06/14/17 16:03 97.8 100 18 136/62 96 06/14/17 15:00 101 06/14/17 12:02 96.8 100 18 132/68 95 06/14/17 11:11 68 Result Diagram: 06/14/17 0505 06/14/17 0505 Other Results Laboratory Tests Test 06/13/17 06/14/17 06/14/17 21:05 05:05 12:45 Prothrombin Time 11.0 SEC Prothromb Time International 1.0 RATIO Ratio Activated Partial 24.9 SEC Thromboplast Time Magnesium Level 1.8 MG/DL Total Creatine Kinase 102 U/L Creatine Kinase MB 0.5 NG/ML White Blood Count 12.0 TH/MM3 Red Blood Count 4.88 MIL/MM3 Hemoglobin 14.2 GM/DL Hematocrit 41.7 % Mean Corpuscular Volume 85.5 FL Mean Corpuscular Hemoglobin 29.0 PG Mean Corpuscular Hemoglobin 34.0 % Concent Red Cell Distribution Width 13.7 % Platelet Count 172 TH/MM3 Mean Platelet Volume 8.7 FL Neutrophils (%) (Auto) 61.2 % Lymphocytes (%) (Auto) 27.3 % Monocytes (%) (Auto) 9.3 % Eosinophils (%) (Auto) 1.8 % Basophils (%) (Auto) 0.4 % Neutrophils # (Auto) 7.4 TH/MM3 Lymphocytes # (Auto) 3.3 TH/MM3 Monocytes # (Auto) 1.1 TH/MM3 Eosinophils # (Auto) 0.2 TH/MM3 Basophils # (Auto) 0.0 TH/MM3 CBC Comment DIFF FINAL Differential Comment Sodium Level 144 MEQ/L Potassium Level 4.2 MEQ/L Chloride Level 109 MEQ/L Carbon Dioxide Level 25.2 MEQ/L Anion Gap 10 MEQ/L Blood Urea Nitrogen 7 MG/DL Creatinine 1.01 MG/DL Estimat Glomerular Filtration 87 ML/MIN Rate Random Glucose 87 MG/DL Calcium Level 8.6 MG/DL Total Bilirubin 1.0 MG/DL Aspartate Amino Transf 6 U/L (AST/SGOT) Alanine Aminotransferase 16 U/L (ALT/SGPT) Alkaline Phosphatase 56 U/L Total Protein 6.6 GM/DL Albumin 3.7 GM/DL Troponin I LESS THAN 0.02 NG/ML Imaging Last Impressions Chest X-Ray 06/15/17 0600 Signed Impressions: Service Date/Time: Thursday, June 15, 2017 06:03 - CONCLUSION: Stable chest x-ray with pneumomediastinum and soft tissue air within the neck. Russell Mendoza MD Neck CT 06/13/17 0000 Signed Impressions: Service Date/Time: Tuesday, June 13, 2017 23:14 - CONCLUSION: Extensive pneumomediastinum with extension of air into the neck as described. Russell Herrera MD Chest CT 06/13/17 0000 Signed Impressions: Service Date/Time: Tuesday, June 13, 2017 23:14 - CONCLUSION: Extensive pneumomediastinum Russell Herrera MD Objective Remarks GENERAL: Well-nourished, well-developed young male patient in [facility]. SKIN: Warm and dry. No rash. HEENT: Normocephalic. Atraumatic. Pupils equal and round. Mucous membranes pink and moist. NECK: Supple. Trachea midline. Palpable crepitus right upper chest/neck. CARDIOVASCULAR: Regular rate and rhythm. S1, S2 noted. No murmur appreciated. RESPIRATORY: No accessory muscle use. Clear to auscultation. Breath sounds equal bilaterally. GASTROINTESTINAL: Abdomen soft, non-tender, nondistended. Normoactive bowel sounds x4. MUSCULOSKELETAL: No obvious deformities. Extremities without clubbing, cyanosis , or edema. NEUROLOGICAL: Awake and alert. No obvious cranial nerve deficits. Motor grossly within normal limits. Normal speech. PSYCHIATRIC: Appropriate mood; insight and judgment normal. Procedures NONE Medications and IVs Current Medications Medications (Trade) Dose Ordered Sig/Valentín Route Start Time Stop Time Status Last Admin (NS Flush) 2 ml UNSCH PRN IVF 06/13/17 21:00 (NS Flush) 2 ml UNSCH PRN IV FLUSH 06/14/17 00:00 (NS Flush) 2 ml BID IV FLUSH 06/14/17 09:00 06/14/17 20:17 (Zofran Inj) 4 mg Q6H PRN IVP 06/14/17 00:00 (Tylenol) 650 mg Q6H PRN PO 06/14/17 00:00 (Clifford 5-325 Mg) 1 tab Q4H PRN PO 06/14/17 00:00 (Morphine Inj) 2 mg Q3H PRN IV 06/14/17 00:00 (Madeline-Colace) 1 tab BID PO 06/14/17 09:00 06/14/17 20:17 (Milk Of Magnesia Liq) 30 ml Q12H PRN PO 06/14/17 00:00 (Senokot) 17.2 mg Q12H PRN PO 06/14/17 00:00 (Dulcolax Supp) 10 mg DAILY PRN RECTAL 06/14/17 00:00 (Lactulose Liq) 30 ml DAILY PRN PO 06/14/17 00:00 (Atarax) 50 mg BID PRN PO 06/14/17 09:00 06/14/17 19:36 (Pepcid) 20 mg BID PO 06/14/17 10:00 06/14/17 20:17 (Ativan Inj) 1 mg Q6H PRN IV PUSH 06/14/17 14:00 Urinary Catheter: No Vascular Central Line Catheter: No A/P Problem List: (1) Pneumomediastinum ICD Code: J98.2 Status: Acute (2) Chest pain ICD Code: R07.9 Status: Acute (3) Anxiety ICD Code: F41.9 Status: Acute (4) Dehydration ICD Code: E86.0 Status: Acute (5) Leukocytosis ICD Code: D72.829 Status: Acute Assessment and Plan 31-year-old male with PMH of Anxiety and Asthma who presented to the ER with complaints of significant chest pain and SOB which he attributes to his anxiety. Extensive Spontaneous Pneumomediastinum: No h/o injury/trauma. CXR w/ pneumomediastinum, CT Neck/Chest w/ extensive pneumomediastinum extending into neck, no pneumothorax noted, images reviewed by me. O2 sat normal, will monitor closely. Repeat CXR 06/14 shows slight interval increase in pneumomediastinum and soft tissue air. Consulted cardiothoracic Dr. Flor, appreciate recommendations. Repeat CXR today shows stable pneumomediastinum and soft tissue air Discussed with Dr. Flor, consult placed. Chest Pain: Likely secondary to above, compounded by significant anxiety. Low risk for CAD. ACS ruled out with negative serial cardiac enzymes x3 and EKG reviewed, no acute ischemic changes. Analgesics as needed. Improved. Anxiety: Continue patient's hydroxyzine prn. Ativan prn severe anxiety. Anxiety improving. Dehydration: GFR 73, BUN/Creat normal, IVF for hydration, repeat labs show improvement. Monitor. Avoid nephrotoxins. Leukocytosis: WBC 15K. Afebrile. CXR w/ no infiltrate, images reviewed by me , no obvious infection. Repeat labs show improvement, WBC 12K. Monitor for fever. DVT Prophylaxis: SCD/Teds. Discharge Planning [id number]: Await further recommendations from Dr. Schulz. Attending Statement The exam, history, and the medical decision-making described in the above note were completed with the assistance of the mid-level provider. I reviewed and agree with the findings presented. I attest that I had a [id number] encounter with the patient on the same day, and personally performed and documented my assessment and findings in the medical record. Celia Cannon PA-C Jun 15, 2017 09:34 Edvin Coburn MD Jun 15, 2017 18:09
[2017-06-15] MEDS: SODIUM CHLORIDE 0.9% FLUSH 10 ML FLUSH IV FLUSH SCH (09:56)
[2017-06-15] MEDS: FAMOTIDINE 20 MG TAB PO SCH (09:56)
[2017-06-15] MEDS: DOCUSATE SODIUM 50 MG/SENNA 8.6 MG TAB PO SCH (09:56)
[2017-06-15 12:00] VITALS: BP 113/73; PULSE 84; RESP 18; TEMP 97.9; O2SAT 98
[2017-06-15] MEDS: hydrOXYzine HCL 50 MG TAB PO PRN (12:56)
[2017-06-15] MEDS ORDERED: BENZONATATE 100 MG CAP PO PRN (14:00)
[2017-06-15 16:00] VITALS: BP 125/77; PULSE 92; RESP 18; TEMP 97.4; O2SAT 97
--- NOTE | 2017-06-15 17:56 | PD.CAR.PN ---
CVT Progress Note Subjective/Hospital Course: Young asthenic appearing patient with spontaneous pneumomediastinum. 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 Pneumomediastinum in this situation will occur when the culprit bleb is located within the folds off parietal pleura as it exits the mediastinum This is a self-limiting process and occasionally we'll turn into home alone pneumothorax at which time patient chest tube placed Full consult to follow Thanks J 06/15/17 Patient doing well Asymptomatic at this time Pneumatosis time and has almost completely absorbed and I barely see a few bubbles of air in the right neck Patient can be discharged from my point and if this happens again then he should be evaluated for a thoracoscopy and the apical bleb resection with pleurodesis At this point patient can be safely discharged Objective: Vital Signs Date Time Temp Pulse Resp B/P Pulse Ox O2 Delivery O2 Flow Rate FiO2 06/15/17 16:00 97.4 92 18 125/77 97 06/15/17 12:00 97.9 84 18 113/73 98 06/15/17 08:50 81 06/15/17 07:47 97.8 81 15 123/77 99 06/15/17 04:15 98.1 84 18 139/78 97 06/14/17 23:41 98.4 97 18 133/70 98 06/14/17 20:24 74 06/14/17 19:42 98.1 85 18 121/77 98 Result Diagram: 06/14/17 0505 06/14/17 0505 Bairon Flor MD Jun 15, 2017 17:56
--- NOTE | 2017-06-15 18:08 | HHI.DCPOC ---
Discharge Care Plan Diagnosis: (1) Pneumomediastinum (2) Anxiety (3) Chest pain Goals to Promote Your Health * To prevent worsening of your condition and complications * To maintain your health at the optimal level Directions to Meet Your Goals Take your medications as prescribed Follow your dietary instruction Follow activity as directed Keep your appointments as scheduled Take your immunizations and boosters as scheduled If your symptoms worsen call your PCP, if no PCP go to Urgent Care Center or Emergency Room Smoking is Dangerous to Your Health. Avoid second hand smoke Call the 24-hour hour crisis hotline for domestic abuse at Celia Cannon PA-C Jun 15, 2017 18:08
== END 2017-06-15 19:00 | disposition home or self-care (01) | DRG 201 ==
LOC: NEPD 19:25 → NEDA 23:50 → NEPHCDU 06-14 01:23 → OBSVTOIN 06-14 08:18
PROVIDERS: ADMIT Internal Medicine; ATTEND Internal Medicine
DX: J98.2 Interstitial emphysema (principal); E86.0 Dehydration; D72.829 Elevated white blood cell count, unspecified; J45.909 Unspecified asthma, uncomplicated; F41.1 Generalized anxiety disorder
CPT/HCPCS: 70491; 71010; 71260; 80048; 80053; 82550; 82552; 83735; 84484; 85025; 85610; 85730; 93005; J2060; J7030; Q9967